=== PATIENT | female | born 1960 | race Caucasian/White ===

== ENCOUNTER → 2017-07-26 | Outpatient (CLI) | payer BC ==
--- NOTE | 2017-07-26 17:55 | CONS ---
CONSULTATION DATE OF SERVICE: 07/26/2017 This patient is a 56-year-old lady who has been evaluated in the sleep center for possible obstructive sleep apnea-hypopnea syndrome. HISTORY OF PRESENT ILLNESS/SLEEP-WAKE EVALUATION: Patient's usual sleep schedule is from 10 p.m. to 6 a.m. on weekdays and from around 11 p.m. to 10 a.m. on weekends. Usually no problem with falling asleep, although she has a TV set in the bedroom. She sleeps with her with loud snoring. She wakes up from sleep 2 times with one episode of nocturia. She prefers to sleep on the side position. In the morning she wakes up tired. [place] Sleepiness Scale is 8. PAST MEDICAL HISTORY: 1. Recent mood swings. 2. Possible depression related to menopause. 3. Hypothyroidism. 4. Hyperlipidemia. 5. Osteoporosis. PAST SURGICAL HISTORY: Two sections. MEDICATIONS: 1. Alendronate. 2. Naproxen. 3. . 4. Levothyroxine. 5. Amitriptyline. 6. Escitalopram. 7. Pravastatin. SOCIAL HISTORY: Negative for smoking. Alcohol consumption occasional. FAMILY HISTORY: Hypertension, hyperlipidemia, headaches. REVIEW OF SYSTEMS: Awakenings from sleep, snoring. PHYSICAL EXAMINATION: GENERAL: Pleasant lady without distress. VITAL SIGNS: BP 139/87, HR 80, RR 16, height 4 feet 8-1/2 inches, weight 122, BMI 26.8, oxygen saturation at room air 97%. HEENT: PERRLA, EOMI. Evaluation of oropharynx showed tongue protrudes midline; low position of soft palate. Short distance between soft palate and pharyngeal wall. Slight restriction of nasal breathing. NECK: Supple. No JVD. Thyroid is not palpable. LUNGS: Clear to percussion and to auscultation. Good air exchange. No wheezing or rhonchi. HEART: S1, S2 regular. No murmurs, gallops or rubs. ABDOMEN: Soft and nontender. Bowel sounds are present. No organomegaly appreciated. EXTREMITIES : No clubbing or cyanosis. WORK STUDY STUDENT: Awake, alert, and oriented X3. Cranial nerves 2 to 7 intact. There is no fasciculation or atrophy. noted. No focal deficits observed. IMPRESSION: 1. Snoring, awakenings from sleep, low position of soft palate; obstructive sleep apnea-hypopnea syndrome. 2. Episodes of headaches and migraines. 3. Hypothyroidism. 4. Menopause. 5. Mood swings; possible depression. 6. Hyperlipidemia. 7. Osteoporosis. 8. Status post two sections. PLAN: 1. Polysomnography for evaluation of patient's breathing during sleep. 2. CPAP/BiPAP titration if sleep study confirms obstructive sleep apnea-hypopnea syndrome. 3. Preferable position during sleep on the side. 4. No driving if patient feels any sleepiness. 5. I will see patient for follow up visit to explain results of testing and following plan. Thank you very much for referring this patient for consultation. Sincerely, Donald Mirza MD, PhD, FAASM Diplomat of [place] [employer] [place] [employer] Senior Living Sales Counselor of [facility] [place] [id number] / HANS: [id number] /
== END | disposition home or self-care (01) ==
LOC: SLEEP 16:23
PROVIDERS: ATTEND Internal Medicine
DX: G47.33 Obstructive sleep apnea (adult) (pediatric) (principal); M27.8 Other specified diseases of jaws; E03.9 Hypothyroidism, unspecified; E78.5 Hyperlipidemia, unspecified; G43.909 Migraine, unspecified, not intractable, without status migrainosus; M81.0 Age-related osteoporosis without current pathological fracture; Z98.890 Other specified postprocedural states; Z79.899 Other long term (current) drug therapy; Z78.0 Asymptomatic menopausal state
CPT/HCPCS: 99211

== ENCOUNTER → 2017-10-16 | Outpatient (CLI) | payer BC ==
[~2017-10-16] MED LIST: SODIUM CHLORIDE 0.9% 500 ML in EMPTY BAG 1 BAG IV PRN; ZOLEDRONIC ACID 5 MG in SODIUM CHLORIDE 0.9% 100 ML IV NR
[2017-10-16 13:42] VITALS: BP 133/83; PULSE 93; RESP 16; TEMP 98.1
== END | disposition home or self-care (01) ==
LOC: PROCWHC3 13:13
PROVIDERS: ATTEND Internal Medicine Endocrinology, Diabetes & Metabolism
DX: M81.0 Age-related osteoporosis without current pathological fracture (principal)
CPT/HCPCS: 96365; J3489

== ENCOUNTER → 2018-04-25 | Outpatient (CLI) | payer BC ==
--- NOTE | 2018-04-25 16:02 | PN ---
PROGRESS NOTE DATE OF SERVICE: 04/25/2018 This patient is a 57-year-old lady who has been followed in the sleep center for treatment of obstructive sleep apnea-hypopnea syndrome. Recently the patient had a home sleep apnea test and CPAP titration, and I discussed the results of her sleep studies with the patient in detail. Subsequently patient was started on treatment with CPAP and today is her first visit after she started treatment. The patient is able to use equipment every night for the whole night without significant problems related to the pressure, humidity or mask fitting. According to the patient, sometimes she still snores with the machine. I checked her CPAP unit. CPAP pressure is 5 cm of water. Usage is 100% of the time for more than 4 hours. Average usage is 9 hours per night. Leak is 2 L/minute, which is great. Apnea-hypopnea index is 3.1, which is normal. MEDICATIONS: 1. Alendronate. 2. Lexapro. 3. Levothyroxine. 4. Amitriptyline. 5. Escitalopram. 6. Pravastatin. Is to the care of. PHYSICAL EXAMINATION: GENERAL: A pleasant patient in no distress. VITAL SIGNS: BP 140/73, HR 88, RR 16, weight 132, temperature 97.9, oxygen saturation at room air 97%. HEENT: PERRLA, EOMI. Evaluation of oropharynx showed tongue protrudes midline. Extremely low position of soft palate. Mallampati IV. NECK: Supple. No JVD. Thyroid is not palpable. LUNGS: Clear to percussion and to auscultation. Good air exchange. No wheezing or rhonchi. HEART: S1, S2 regular. No murmurs, gallops or rubs. ABDOMEN: Slightly obese. EXTREMITIES: No clubbing or cyanosis. MUSIC ORCHESTRATOR: Awake, alert, and oriented X3. Cranial nerves 2 to 7 intact. There is no fasciculation or atrophy. noted. No focal deficits observed. IMPRESSION: 1. Obstructive sleep apnea-hypopnea syndrome. Patient demonstrated 100% compliance with treatment, benefitting from treatment. 2. Patient still has rare episodes of headaches in the morning. 3. Hypothyroidism. 4. Menopause. 5. History of mood swings, possible depression. 6. Hyperlipidemia. 7. Osteoporosis. 8. Status post 2 sections. PLAN: 1. I will change regimen of the machine to automatic mode with the minimal pressure 4 and maximum pressure 8. 2. Patient will continue to use equipment every night for the whole night. 3. Sleep hygiene with regular time in bed for at least 8 hours. 4. No driving if feeling any sleepiness. 5. We will maintain all necessary prescriptions for mask, tube, filters. Thank you very much for allowing me to participate in the management of your patient. Sincerely, Donald Mirza MD, PhD, FAASM Diplomat of [place] [employer] [place] [employer] Vacuum Cleaner Repairer of [facility] [place] [id number] / IJN: [id number] /
== END | disposition home or self-care (01) ==
LOC: SLEEP 13:08
PROVIDERS: ATTEND Internal Medicine
DX: G47.33 Obstructive sleep apnea (adult) (pediatric) (principal); R51 Headache; E03.9 Hypothyroidism, unspecified; N95.1 Menopausal and female climacteric states; E78.5 Hyperlipidemia, unspecified; M81.0 Age-related osteoporosis without current pathological fracture; Z86.59 Personal history of other mental and behavioral disorders; Z99.89 Dependence on other enabling machines and devices; Z98.890 Other specified postprocedural states; Z79.899 Other long term (current) drug therapy

== ENCOUNTER → 2018-10-31 | Outpatient (CLI) | payer BC ==
[~2018-10-31] MED LIST changes: +EPINEPHrine 1 MG/ML 1 ML AMP SQ PRN; +HYDROCORTISONE SUCCINATE 100 MG/2 ML VIAL IV PRN; +SODIUM CHLORIDE 0.9% 500 ML 500 ML IV PRN; +SODIUM CHLORIDE 0.9% 500 ML 500 ML in EMPTY BAG 1 BAG IV PRN; -SODIUM CHLORIDE 0.9% 500 ML in EMPTY BAG 1 BAG IV PRN; +diphenhydrAMINE 50 MG/ML 1 ML VIAL IVP PRN
[2018-10-31 12:51] VITALS: BP 121/79; PULSE 97; RESP 16; TEMP 97.9
== END | disposition home or self-care (01) ==
LOC: PROCWHC3 12:16
PROVIDERS: ATTEND Internal Medicine Endocrinology, Diabetes & Metabolism
DX: M81.0 Age-related osteoporosis without current pathological fracture (principal)
CPT/HCPCS: 96365; J3489

== ENCOUNTER → 2019-01-07 | Outpatient (CLI) | payer BC ==
--- NOTE | 2019-01-07 09:53 | BD ---
EXAMINATION TYPE: Axial Bone Density DATE OF EXAM: 01/07/2019 COMPARISON: NONE CLINICAL HISTORY: M 82.0 Height: 58 Weight: 132.5 FRAX RISK QUESTIONS: Alcohol (3 or more units per day): NO Family History (Parent hip fracture): no Glucocorticoids (More than 3mos): no (Ex: prednisone, prednisolone, methylprednisolone, dexamethasone, and hydrocortisone). History of Fracture in Adulthood: no Secondary Osteoporosis: 1. Type 1 Diabetes: no 2. Hyperthyroidism: no 3. Menopause before 45: no 4. Malnutrition: no 5. Chronic liver disease: no Rheumatoid Arthritis: no Current Tobacco Use: no RISK FACTORS HISTORY OF: Family History of Osteoporosis: no Active: yes Diet low in dairy products/other sources of calcium: no Postmenopausal woman: age56 MEDICATIONS: headache meds, mood pills Thyroid Medications: thyroid How Lon year osteo meds- reclast- has had 2 shots Additional History: EXAM MEASUREMENTS: Bone mineral densitometry was performed using the [employer] System. Bone mineral density as measured about the Lumbar spine is: ----- L1-L4(G/cm2): 0.941 T Score Values are as follows: ----- L2: -1.5 ----- L3: -2.0 ----- L4: -2.8 ----- L1-L4: -2.0 Bone mineral density : baseline Bone mineral density about the R hip (g/cm2): 0.720 Bone mineral density about the L hip (g/cm2): 0.725 T Score values are as follows: -----R Neck: -2.3 -----L Neck: -2.2 -----R Total: -1.8 -----L Total: -1.8 Bone mineral density : baseline IMPRESSION: Osteoporosis (T Score less than -2.5). There is increased fracture risk and therapy is usually indicated based on age. Re-Screen 1-2 years. NOTE: T-SCORE=SD OF THE YOUNG ADULT MEAN.
== END | disposition home or self-care (01) ==
LOC: RADBDWWP 08:06
PROVIDERS: ATTEND Internal Medicine Endocrinology, Diabetes & Metabolism
DX: M81.0 Age-related osteoporosis without current pathological fracture (principal)
CPT/HCPCS: 77080

== ENCOUNTER → 2019-12-17 | Outpatient (CLI) | payer BC ==
[~2019-12-17] MED LIST changes: -EPINEPHrine 1 MG/ML 1 ML AMP SQ PRN; -HYDROCORTISONE SUCCINATE 100 MG/2 ML VIAL IV PRN; -SODIUM CHLORIDE 0.9% 500 ML 500 ML IV PRN; -diphenhydrAMINE 50 MG/ML 1 ML VIAL IVP PRN
[2019-12-17 12:15] VITALS: BP 118/70; PULSE 79; RESP 16; TEMP 98.2
== END | disposition home or self-care (01) ==
LOC: PROCWHC3 11:46
PROVIDERS: ATTEND Internal Medicine Endocrinology, Diabetes & Metabolism
DX: M81.0 Age-related osteoporosis without current pathological fracture (principal)
CPT/HCPCS: 96365; J3489

== ENCOUNTER → 2021-01-04 | Outpatient (CLI) | payer BC ==
[2021-01-04 10:45] VITALS: BP 119/78; PULSE 71; RESP 16; TEMP 98
== END ==
LOC: PROCWHC3 10:24
PROVIDERS: ATTEND Internal Medicine Endocrinology, Diabetes & Metabolism
DX: M81.0 Age-related osteoporosis without current pathological fracture (principal)
CPT/HCPCS: 96365; J3489

== ENCOUNTER → 2022-03-03 | Outpatient (CLI) | payer BC ==
[2022-03-03 10:38] VITALS: BP 135/85; PULSE 89; RESP 16; TEMP 98.1
== END ==
LOC: PROCWHC3 10:17
PROVIDERS: ATTEND Internal Medicine Endocrinology, Diabetes & Metabolism
DX: M81.0 Age-related osteoporosis without current pathological fracture (principal)
CPT/HCPCS: 96365; J3489

== ENCOUNTER → 2022-03-21 | Outpatient (CLI) | payer BC ==
[2022-03-21 18:46] LABS: ALT 46 U/L (8-44); AST 23 U/L (13-35); African American GFR (CKD) 92.9 (60.0-200.0); Albumin 4.4 g/dL (3.8-4.9); Albumin/Globulin Ratio 1.91 (1.60-3.17); Alkaline Phosphatase 105 U/L (41-126); BUN/Creat Ratio 16.13 Ratio (12.00-20.00); Blood Urea Nitrogen 12.9 mg/dL (9.0-27.0); Calcium 9.3 mg/dL (8.7-10.3); Carbon Dioxide 26.8 mmol/L (20.0-27.5); Chloride 102 mmol/L (96-109); Globulin 2.3 g/dL (1.6-3.3); Glucose 97 mg/dL (70-110); Non-African American GFR(CKD) 80.1 (60.0-200.0); Potassium 4.9 mmol/L (3.5-5.5); Sodium 139 mmol/L (135-145); Total Bilirubin <0.15 mg/dL (0.30-1.20); Total Protein 6.7 g/dL (6.2-8.2)
[2022-03-22 05:46] LABS: C-Peptide 2.72 ng/mL (0.81-3.85)
== END | disposition home or self-care (01) ==
LOC: LABWHC1 11:54
PROVIDERS: ATTEND Internal Medicine Endocrinology, Diabetes & Metabolism
DX: M81.0 Age-related osteoporosis without current pathological fracture (principal)
CPT/HCPCS: 36415; 80053; 82306; 82523; 83970; 84443; 84681